=== PATIENT | female | born 1955 | race Two or more races ===

== ENCOUNTER → 2018-10-26 | Outpatient (CLI) | payer OTHER ==
--- NOTE | 2018-10-26 11:22 | RAD ---
EXAM: Bilateral hips, 2 views; lumbar spine, 3 views. HISTORY: Pain. COMPARISON: None. FINDINGS: Lumbar spine: 3 views of the lumbar spine are obtained. There is a transitional lumbosacral segment, considered a partially lumbarized S1 segment for this dictation. Based on this numbering system, there is minimal grade 1 anterolisthesis of L4 on L5, measuring 2 mm. There is mild endplate remodeling at all levels. There is disc space narrowing with vacuum phenomenon and facet arthropathy at L5-S1. There is an IVC filter in expected position. There are cholecystectomy clips. There is an iliac stent and there are embolization coils within the pelvis. Bilateral hips: Frontal and frog-leg views of both hips are obtained. There is no fracture, dislocation or subluxation. There is minimal marginal acetabular spurring. IMPRESSION: 1. Multilevel degenerative change involving the lumbar spine, primarily at L5-S1. 2. Minimal grade 1 anterolisthesis of L4 on L5. 3. Transitional lumbosacral segment, considered S1 for this dictation. 4. No acute osseous finding. Electronically signed by: Alyssa Briceño MD (10/26/2018 11:19 AM) [facility]
== END | disposition home or self-care (01) ==
LOC: RAD 10:18
PROVIDERS: ATTEND Internal Medicine
DX: Z02.71 Encounter for disability determination (principal); M43.16 Spondylolisthesis, lumbar region; M47.817 Spondylosis without myelopathy or radiculopathy, lumbosacral region; M48.07 Spinal stenosis, lumbosacral region; M12.88 Other specific arthropathies, not elsewhere classified, other specified site; Z90.49 Acquired absence of other specified parts of digestive tract; M76.9 Unspecified enthesopathy, lower limb, excluding foot
CPT/HCPCS: 72100; 73502